=== PATIENT | female | born 1950 | race Caucasian/White ===

== ENCOUNTER → 2021-05-31 | Outpatient (CLI) | payer MEDICARE ==
[~2021-05-31] MED LIST: BAMLANIVIMAB (EUA) 700 MG, ETESEVIMAB (EUA) 1,400 MG in SODIUM CHLORIDE 0.9% 100 ML IVPB ONE; SODIUM CHLORIDE 0.9% 50 ML IVPB ONE; SODIUM CHLORIDE 0.9% 500 ML 500 ML in EMPTY BAG 1 BAG IV PRN
[2021-05-31 08:48] VITALS: RESP 18; TEMP 96.6
[2021-05-31 09:26] VITALS: BP 115/75; PULSE 63
== END ==
LOC: PROCWHC3 07:53
PROVIDERS: ATTEND Family Medicine
DX: U07.1 COVID-19 (principal); E66.9 Obesity, unspecified; E11.22 Type 2 diabetes mellitus with diabetic chronic kidney disease; N18.9 Chronic kidney disease, unspecified; Z88.1 Allergy status to other antibiotic agents; Z68.41 Body mass index [BMI] 40.0-44.9, adult
CPT/HCPCS: 96413; J3490; M0245

== ENCOUNTER → 2021-12-25 | Outpatient (CLI) | payer MEDICARE ==
--- NOTE | 2021-12-25 13:12 | MR ---
EXAMINATION TYPE: MR lumbar spine wo con DATE OF EXAM: 12/25/2021 COMPARISON: HISTORY: Lower back pain, right side, for 6 months. CONTRAST: 0 mL intravenous . TECHNIQUE: Multiplanar, multisequence images of the lumbar spine were acquired. FINDINGS: Cord terminates at the L1 level. Degenerative disc changes and disc desiccation are presen t throughout the lumbar spine. There is greater loss of disc height at L4-5 and L5-S1. L5-S1: No significant disc bulge or disc herniation. No spinal canal stenosis. No foraminal stenosi s. . L4-L5: No significant disc bulge or disc herniation. No spinal canal stenosis. No foraminal stenosi s. . L3-L4: No significant disc bulge or disc herniation. No spinal canal stenosis. No foraminal stenosi s. Facet hypertrophy is present on the left at this level without significant posterior lateral thec al sac impression.. L2-L3: Minimal disc bulge may be present with anterior thecal sac contact. No AP spinal canal stenosi s or neural foraminal stenosis is present. L1-L2: Minimal disc bulge is present with anterior thecal sac contact. No spinal canal stenosis. T12-L1: Mild disc bulge may be present with anterior thecal sac contact. No spinal canal stenosis. No foraminal stenosis. IMPRESSION: 1. Degenerative disc changes throughout the lumbar spine. Some minimal disc bulging may be present T1 2-L1, L1-2, L2-3. No cord contact or spinal canal stenosis is present. 2. Some facet hypertrophy present on the left at L3-4.
== END | disposition home or self-care (01) ==
LOC: RADMRIMAIN 10:45
PROVIDERS: ATTEND Orthopaedic Surgery
DX: M47.26 Other spondylosis with radiculopathy, lumbar region (principal); M51.16 Intervertebral disc disorders with radiculopathy, lumbar region
CPT/HCPCS: 72148

== ENCOUNTER → 2022-02-01 | Outpatient (CLI) | payer MEDICARE ==
[2022-02-01 12:59] VITALS: BP 112/56; PULSE 73; RESP 18; TEMP 98.4
--- NOTE | 2022-02-01 13:13 | P.PAINCN ---
History of Present Illness - Reason for Consult Consult date: 02/01/22 - History of Present Illness This is 71 years old female with a chronic history of severe low back pain, the pain started in June 2021, he denies any initiating event and she reported that the pain is constant localized in the low back area with radiation to the buttock bilaterally, she denies any motor or sensory deficits denies any fever or night sweats she denies any change in the bowel movement or urination, she tried physical therapy with more minimal benefit she tried heat with minimal benefit, patient use cane and walker to help her with the movement, she tried massage therapy and physical therapy and she continued to have severe back pain she continue to use [place]rick 7.5/325 and Flexeril when necessary and she had minimal benefit from it Past Medical History Past Medical History: Asthma, Cancer, Diabetes Mellitus, Hyperlipidemia, Hypertension, Osteoarthritis (OA), Pneumonia Additional Past Medical History / Comment(s): CHRONIC BACK PAIN, SEASONAL ALLERGIES History of Any Multi-Drug Resistant Organisms: None Reported Past Surgical History: Bariatric Surgery, Section, Heart Ca theterization, Joint Replacement, Tonsillectomy, Tubal Ligation Additional Past Surgical History / Comment(s): LAP BAND, RT KNEE REPLACEMENT, RT LEG VEIN STRIPPING, SKIN CANCER Past Anesthesia/Blood Transfusion Reactions: Motion Sickness Smoking Status: Never smoker - Past Family History Sister(s) Family Medical History: Cancer Additional Family Medical History / Comment(s): (2) SISTERS HAD CANCER Medications and Allergies Home Medications Medication Instructions Recorded Confirmed Type ALPRAZolam [Xanax] 0.25 mg PO TID PRN 10/23/13 02/01/22 History Albuterol Inhaler(Dose Unknown) 2 puff INHALATION PRN 10/23/13 10/24/13 History Aspirin 81 mg PO DAILY 10/23/13 02/01/22 History Cetirizine HCl 10 mg PO DAILY 10/23/13 02/01/22 History Flovent(Dose Unknown) 1 puff INHALATION DAILY PRN 10/23/13 02/01/22 History Hydrocodone/Acetaminophen 1 each PO Q8HR PRN 10/23/13 02/01/22 History [Hydrocodone/Acetaminophen 7.5-300] Meclizine [Antivert] 25 mg PO TID PRN 10/23/13 02/01/22 History Metoprolol Tartrate [Lopressor] 50 mg PO BID 10/23/13 02/01/22 History Multivitamins, Thera [Multivitamin] 1 tab PO DAILY 10/23/13 02/01/22 History Pravastatin Sodium [Pravachol] 80 mg PO HS 10/23/13 02/01/22 History lisinopriL [Zestril] 20 mg PO DAILY 10/23/13 02/01/22 History metFORMIN HCL [Glucophage] 500 mg PO BID 10/23/13 02/01/22 History Hydrocodone/Acetaminophen [[place] 1 - 2 each PO Q4HR PRN #30 tab 10/24/13 02/01/22 Rx 5-325] Cyclobenzaprine [Flexeril] 5 mg PO HS 02/01/22 02/01/22 History Allergies Allergy/AdvReac Type Severity Reaction Status Date / Time azithromycin Allergy Unknown Verified 02/01/22 12:59 erythromycin base Allergy Unknown Verified 02/01/22 12:59 Physical Exam Vitals: Vital Signs Temp Pulse Resp BP Pulse Ox 02/01/22 12:54 98.4 F 73 18 112/56 96 Intake and Output 01/31/22 02/01/22 02/01/22 22:59 06:59 14:59 Other: Weight 127.006 kg Physical Examinations : -Constitutiona : Cooperative , not in acute distress . -HEENT : nech : supple , no Lymphadenopathy , normal thyroid size . : eyes : no ptosis , no icterus, no photophobia . - neurologic : Cranial nerve II to XII intact , no focal neurological deffecit . -psychatric : alert , oriented X 3 , appropriate affect , intact judgment and insight . -Lymphatic : no Lymphadenopathy . - musculoskeltal : Lumber spine moter stegnth lower extremities ,thigh and legs 5/5 Right side , 5/5 Left side deep tendon reflexes : normal Knee Jerk , normal ankle Jerk lumber facet Loading Test =positive Right , positive Left Range of motion of the lumbar spine Flexion 30 degrees, extension 10 degrees strait leg raising test = positive at 30 degree right side, and is negative on the left side Fabere test= positive Right , and negative LT . Sever tenderness over the Sacroiliac joint on the Right , and Left sides Gaenslen test= positive right ,and positive left . Seated flexion test= positive right ,and positive Left . Distraction test= positive bilaterally Sacroiliac compression test= positive bilaterally Results Comments: MRI of the lumbar spine L3 4 lumbar facet arthropathy and lumbar degenerative disc disease Assessment and Plan Plan: Assessment and plan=1-bilateral sacroiliitis. 2-lumbar spondylosis with lumbar facet arthropathy. 3-lumbar degenerative disc disease. she could benefit from bilateral sacroiliac joint steroid injection Time with Patient: Greater than 30 PQRS Measure Charge Sheet Mode of Arrival: Wheelchair - Pain Location Lower Back Non-Pharmacological Interventions: Heat, Home Exercise, Inactivity, Physical Therapy, Position/Reposition, Sitting, Stretching Pharmacological Interventions: PRN Medication PQRS Narrative: Smoking Status Never smoker Blood Pressure 112/56 Pain Intensity [Lower Back] 5 Scale Used Numeric (1 - 10) Hx Alcohol Use (MH) No Home Medications: Ambulatory Orders ALPRAZolam [Xanax] 0.25 mg PO TID PRN 10/23/13 Albuterol Inhaler(Dose Unknown) 2 puff INHALATION PRN 10/23/13 Aspirin 81 mg PO DAILY 10/23/13 Cetirizine HCl 10 mg PO DAILY 10/23/13 Flovent(Dose Unknown) 1 puff INHALATION DAILY PRN 10/23/13 Hydrocodone/Acetaminophen [Hydrocodone/Acetaminophen 7.5-300] 1 each PO Q8HR PRN 10/23/13 Meclizine [Antivert] 25 mg PO TID PRN 10/23/13 Metoprolol Tartrate [Lopressor] 50 mg PO BID 10/23/13 Multivitamins, Thera [Multivitamin] 1 tab PO DAILY 10/23/13 Pravastatin Sodium [Pravachol] 80 mg PO HS 10/23/13 lisinopriL [Zestril] 20 mg PO DAILY 10/23/13 metFORMIN HCL [Glucophage] 500 mg PO BID 10/23/13 Hydrocodone/Acetaminophen [[place] 5-325] 1 - 2 each PO Q4HR PRN #30 tab 10/24/13 Cyclobenzaprine [Flexeril] 5 mg PO HS 02/01/22
== END ==
LOC: PNWHC3 12:22
PROVIDERS: ATTEND Specialist
DX: M51.16 Intervertebral disc disorders with radiculopathy, lumbar region (principal); M47.26 Other spondylosis with radiculopathy, lumbar region; M46.1 Sacroiliitis, not elsewhere classified; J45.909 Unspecified asthma, uncomplicated; E11.9 Type 2 diabetes mellitus without complications; E78.5 Hyperlipidemia, unspecified; I10 Essential (primary) hypertension; Z79.899 Other long term (current) drug therapy; Z88.1 Allergy status to other antibiotic agents
CPT/HCPCS: 99211

== ENCOUNTER 2022-03-14 09:46 | Day surgery (SDC) | payer MEDICARE ==
[2022-03-13 11:14] VITALS: BMI 43.8
[2022-03-14 10:09] VITALS: TEMP 97.4
[2022-03-14 10:12] LABS: Glucose,Whole Blood 179 mg/dL (70-110)
[2022-03-14] MEDS: LACTATED RINGERS 1,000 ML IV SCH ×2 (10:12→10:15)
[2022-03-14] MEDS ORDERED: ROPIVACAINE 5 MG/ML 20 ML AMPULE ONE (10:17)
[2022-03-14] MEDS ORDERED: MIDAZOLAM 2 MG/2 ML VIAL ONE (10:17)
[2022-03-14] MEDS ORDERED: fentaNYL (PF) 50 MCG/ML 2 ML AMP ONE (10:17)
[2022-03-14] MEDS ORDERED: TRIAMCINOLONE ACETONIDE 40 MG/ML 1 ML VIAL ONE (10:17)
--- NOTE | 2022-03-14 10:32 | P.PCN ---
Date of Procedure: 03/14/22 Surgeon: Ruby Aguero Pathology: none sent Condition: stable Disposition: PACU Description of Procedure: Preoperative diagnoses= B/L sacroiliac joint dysfunction and sacroiliitis Postoperative diagnoses= same as preoperative diagnosis. Procedure=B/L sacroiliac joint steroid injection under fluoroscopic guidance. Anesthesia= local anesthesia with lidocaine 1% and IV moderate conscious sedation with fentanyl and Versed Estimated blood loss=minimal. Procedure indication= the patient had a history of severe chronic low back pain, diagnosed with sacroiliitis and lumbar sacral facet arthropathy unresponsive to conservative treatment. Procedure description= the patient was seen and identified in the preoperative holding area, risks and benefits and alternative of the procedure and possible complications discussed with the patient, patient signed the consent. an IV was started, and vital signs were monitored and were stable throughout the procedure, patient was placed in the prone position or table and the lumbosacral area was prepped and draped with a sterile fashion, vital signs were closely monitored during the procedure.The Lt sacroiliac joint was identified on the AP view of fluoroscopy then the C-arm was tilted to the contralateral oblique position to superimpose the anterior and posterior joint lines on each other and to have a unified joint line with the target point at the inferior one third of this line. I used 22-gauge 3-1/2 inch Quincke spinal needle for this procedure and after getting into the sacroiliac joint I injected 20 mg of Kenalog +2 MLS of Ropivacaine 0.5%. The opposite side was done in the same manner. Patient tolerated the procedure well without any complication, The patient returned to supine position after the back was cleaned and a Band- Aid applied, the patient transported to recovery room in stable condition and he was monitored for 30 minutes before she was discharged home in stable condition . patient will follow up with the pain clinic in a few weeks. A copy of the needle placement was saved to the C-arm machine. Sedation time:[id number]
[2022-03-14] MEDS ORDERED: IV FLUID CONTINUATION 850 ML IV ONE (10:37)
--- NOTE | 2022-03-14 10:41 | FL ---
EXAMINATION TYPE: FL guided pain mgmt statistic DATE OF EXAM: 03/14/2022 HISTORY: Fluoroscopy time 23 seconds of fluoroscopy provided. IMPRESSION: 1. Fluoroscopy time.
[2022-03-14 10:43] VITALS: RESP 16
[2022-03-14 10:53] VITALS: BP 134/79; PULSE 70
== END 2022-03-14 11:08 | disposition home or self-care (01) ==
LOC: ORPAIN 09:46
PROVIDERS: ATTEND Anesthesiology
DX: M46.1 Sacroiliitis, not elsewhere classified (principal)
CPT/HCPCS: J2250; J3301; J3010; J2795; G0260

== ENCOUNTER → 2022-06-05 | Outpatient (CLI) | payer MEDICARE ==
[2022-06-05 14:37] VITALS: BP 130/86; PULSE 84; RESP 18; TEMP 98.5
--- NOTE | 2022-06-05 14:48 | P.PAINPG ---
Objective - Vital Signs Vital signs: Intake & Output 06/04/22 06/05/22 06/05/22 18:59 06:59 18:59 Weight 124.738 kg PQRS Measure Charge Sheet Comment: A 72 yr old female with a history of severe and chronic low back pain secondary to lumbar DDD and spondylosis with facet arthropathy without myelopathy presents today for medication refills. She experienced 70% pain relief x 6 wks s/p BL SI injection. Pain level is provoked at 4 /10 in intensity, constant, localized in the lumbar spine, sharp in character w shooting towards . Pain is provoked by standing up from a supine position. Pain is alleviated with PT x 4-6 wks in November 2021, massage therapy integrated w PT, heat, meds ([place], muscle relaxer, Lidoderm), sitting and rest. Interventional pain procedures completed include BL SI injection Patient is currently on [place], muscle relaxer, Lidoderm Patient denies any side effects of the medication(s), denies excessive drowsiness or sleepiness, denies suicidal ideation and reports that the current pain medication is helping to control the pain and improve activities of daily living. Patient denies any motor or sensory deficits. Patient denies any fever or night sweats, denies any change in the bowel movements or urination. Physical Examination: -Constitutional: Cooperative. Not in acute distress . - Neurologic: Cranial nerve II to XII intact. No focal neurological deficits. - Psychatric: Alert & oriented x 3. Matching mood & appropriate affect. Judgment and insight intact. - Musculoskeletal: Cervical spine: Muscle bulk/ tone/ strength in the bilateral upper extremities normal Vertebral body tenderness to palpation over Spurling test positive Distraction test positive Facet loading test positive Thoracic spine Muscle bulk / tone/ strength in the bilateral paraspinal muscles normal Vertebral body tender to palpation over Facet loading test positive Lumbar spine: Motor bulk/ tone/ strength lower extremities , thigh and legs : 5/5 Deep tendon reflexes : Normal Knee Jerk. Normal Ankle Jerk . Vertebral body tenderness to palpation over Lumbar Facet Loading Test positive Straight Leg Raise: positive at 30 degrees right side/ left side Gaenslen's Test positive Sacral spine : Severe tenderness over the Sacroiliac joint: right side / left side Range of motion: Flexion of the lumbar spine <60 degrees Range of motion: Extension of the lumbar spine <20 degrees Gaenslen's Test positive BL Staci test: positive right side / left side Thigh Thrust Test R>L BL Sacral Thrust Test Assessment and plan: Chronic low back pain secondary to lumbar degenerative disc disease, spondylosis with facet arthropathy without myelopathy Recommendation of BL SI injection. May need a series, up to every 3 mo, for optimal pain relief. Risks, benefits of procedure discussed and pt sal[place]riga understanding. Denies anticoagulant use or medical history of diabetes. All patient questions answered MAPS reviewed and it was appropriate. Prescription refill for Lidoderm 5% patches #30 w 1 RF I have spent less than 30 minutes on patient care today. Dr Damon was available by phone for the evaluation of this patient. The time was used to review the medical records including relevant urine studies and Prescription history (MAPs), review of the available imaging, evaluation and examination of the patient, coordination of care with the medical staff and if applicable referring physicians, as well as creation of the medical record - Pain Location Bilateral Lower Back Non-Pharmacological Interventions: Heat, Inactivity, Massage, Physical Therapy, Sitting Pharmacological Interventions: PRN Medication, Topical Medication PQRS Narrative: Smoking Status Never smoker Hx Alcohol Use (MH) No Home Medications: Ambulatory Orders ALPRAZolam [Xanax] 0.25 mg PO TID PRN 10/23/13 Albuterol Inhaler(Dose Unknown) 2 puff INHALATION DIRECTED PRN 10/23/13 Aspirin 81 mg PO DAILY 10/23/13 Cetirizine HCl 10 mg PO DAILY 10/23/13 Meclizine [Antivert] 25 mg PO TID PRN 10/23/13 Metoprolol Tartrate [Lopressor] 50 mg PO BID 10/23/13 Multivitamins, Thera [Multivitamin] 1 tab PO DAILY 10/23/13 Pravastatin Sodium [Pravachol] 80 mg PO HS 10/23/13 metFORMIN HCL [Glucophage] 500 mg PO TID 10/23/13 Hydrocodone/Acetaminophen [[place] 5-325] 1 - 2 each PO Q4HR PRN #30 tab 10/24/13 Cyclobenzaprine [Flexeril] 5 mg PO HS 02/01/22 Empagliflozin [Jardiance] 10 mg PO DAILY 03/14/22 Lidocaine 5% Patch [Lidoderm 5% Patch] 1 each TP Q24H 30 Days #30 patch 06/05/22 Controlled Substance Measures - Controlled Substance Measures Is patient prescribed a controlled substance at discharge?: No
== END ==
LOC: PNWHC3 14:06
PROVIDERS: ATTEND Specialist
DX: M47.816 Spondylosis without myelopathy or radiculopathy, lumbar region (principal); M51.36 Other intervertebral disc degeneration, lumbar region; Z88.1 Allergy status to other antibiotic agents
CPT/HCPCS: 99211

== ENCOUNTER 2022-06-22 08:11 | Day surgery (SDC) | payer MEDICARE ==
[2022-06-20 08:58] VITALS: BMI 43.8
[~2022-06-22 08:11] MED LIST changes: -BAMLANIVIMAB (EUA) 700 MG, ETESEVIMAB (EUA) 1,400 MG in SODIUM CHLORIDE 0.9% 100 ML IVPB ONE; +LACTATED RINGERS 1,000 ML IV SCH; +LIDOCAINE 1% (10MG/ML) FOR IV START INTRADERMA PRN; -SODIUM CHLORIDE 0.9% 50 ML IVPB ONE; -SODIUM CHLORIDE 0.9% 500 ML 500 ML in EMPTY BAG 1 BAG IV PRN
[2022-06-22 08:32] VITALS: TEMP 96.6
[2022-06-22 08:51] LABS: Glucose,Whole Blood 177 mg/dL (70-110)
[2022-06-22] MEDS ORDERED: ONDANSETRON 4 MG/2 ML VIAL ONE ×2 (09:04→09:07)
[2022-06-22] MEDS ORDERED: methylPREDNISolone ACETATE 40 MG/ML 1 ML VIAL ONE (09:07)
[2022-06-22] MEDS ORDERED: ROPIVACAINE 5 MG/ML 20 ML AMPULE ONE (09:07)
[2022-06-22] MEDS ORDERED: MIDAZOLAM 2 MG/2 ML VIAL ONE (09:07)
[2022-06-22] MEDS ORDERED: fentaNYL (PF) 50 MCG/ML 2 ML AMP ONE (09:07)
--- NOTE | 2022-06-22 09:19 | P.PCN ---
Date of Procedure: 06/22/22 Procedure(s) Performed: Procedure= bilateral sacroiliac joints steroid injection under fluoroscopy guidance (fluoroscopy image stored on file in the radiology Department ) Preoperative diagnosis= 1-sacroiliitis 2-lumbar degenerative disc disease 3- lumbar facet arthropathy Postoperative diagnosis=Same as preop Diagnosis . Complication = none Condition= stable Anesthesia= moderate sedation with intravenous Versed 2 mg , and fentanyl 50 micrograms . Sedation start time: 0 9:10 Sedation end time : 09:17 Indication for the procedure= patient complaining of low back pain , examination was positive for severe tenderness over the sacroiliac joints bilaterally and patient diagnosed with sacroiliitis, for this reason she was good candidate for sacroiliac joint steroid injection. Description of the procedure= procedure risk and benefits discussed with the patient, including but not limited, risk of infection and bleeding, and ALLERGIC reaction to the medication and not complete pain relief and patient agreed with the preceding patient taken to the operating room, placed in prone position or standard monitors applied to the patient then after induction of anesthesia back prepped with chlorhexidine 3 times , Then under strict sterile technique, first I did the right sacroiliac joint the which was identified under fluoroscopy guidance been local infiltration of the skin and subcu interstitial with lidocaine 1% then 22-gauge Quincke Needle adva nced slowly under fluoroscopy and placed in the right sacroiliac joint needle placement confirmed with AP and oblique and lateral view and after appropriate needle placement confirmed and after negative aspiration, or heme , then Ropivacaine 0.5% 4 mL, and 20 mg of Depo-Medrol mixed together and injected in the right sacroiliac joint after negative aspiration patient tolerated the procedure well without any complication. Then the left sacroiliac joint steroid injection done under strict sterile technique local infiltration of the skin and subcu interstitial at the location of the left sacroiliac joint then a 22-gauge Quincke Needle advanced slowly under fluoroscopy time placed in the left sacroiliac joint, needle placement confirmed with AP and oblique and lateral view then after appropriate needle placement confirmed and after negative aspiration 0.5% Ropivacaine 4 mL and 20 mg of Depo-Medrol injected in the left sacroiliac joint after negative aspiration patient tolerated the procedure well that any complications and she will follow up in clinic 3 weeks
[2022-06-22] MEDS ORDERED: IV FLUID CONTINUATION 800 ML IV ONE (09:21)
[2022-06-22 09:34] VITALS: RESP 20
[2022-06-22 09:41] VITALS: BP 116/76; PULSE 64
--- NOTE | 2022-06-22 11:06 | FL ---
EXAMINATION TYPE: FL guided pain mgmt statistic DATE OF EXAM: 06/22/2022 CLINICAL HISTORY: SI joint injection TECHNIQUE: Fluoroscopy. COMPARISON: None. FINDINGS: Fluoroscopic guidance was provided during procedure performed by the referring physician. A total of 7 seconds of fluoroscopic time was utilized during the procedure and 2 spot images was acq uired. Please see separate report for procedural details. IMPRESSION: As Above.
== END 2022-06-22 09:51 | disposition home or self-care (01) ==
LOC: ORPAIN 08:11
PROVIDERS: ATTEND Specialist
DX: M46.1 Sacroiliitis, not elsewhere classified (principal); M51.36 Other intervertebral disc degeneration, lumbar region; M47.816 Spondylosis without myelopathy or radiculopathy, lumbar region; Z88.1 Allergy status to other antibiotic agents; Z79.83 Long term (current) use of bisphosphonates
CPT/HCPCS: J2250; J1030; J2405; J3010; J2795; G0260

== ENCOUNTER → 2022-08-14 | Outpatient (CLI) | payer MEDICARE ==
[2022-08-14 12:48] VITALS: BP 130/83; PULSE 57; RESP 18; TEMP 97.7
--- NOTE | 2022-08-14 14:45 | P.PAINPG ---
PQRS Measure Charge Sheet Comment: A 72 yr old female with a history of severe and chronic LBP secondary to lumbar DDD and spondylosis with facet arthropathy without myelopathy presents today for evaluation s/p BL SI injections and medication refill. Pt states she experienced 90 % pain relief x 6 wks s/p procedure. Pain level is provoked at 6 /10 in intensity, constant, localized in the lower lumbar spine, pinching in character w/p shooting pain. Pain is provoked by . Pain is alleviated with PT w massage x 2 mo in Nov 2021, medications, topical, home stretching regimen, repositioning and rest. Interventional pain procedures completed include BL SI Patient is currently on [place], Tyl, Lidoderm Patient denies any side effects of the medication(s), denies excessive drowsiness or sleepiness, denies suicidal ideation and reports that the current pain medication is helping to control the pain and improve activities of daily living. Patient denies any motor or sensory deficits. Patient denies any fever or night sweats, denies any change in the bowel movements or urination. Physical Examination: -Constitutional: Cooperative. Not in acute distress . - Neurologic: Cranial nerve II to XII intact. No focal neurological deficits. - Psychatric: Alert & oriented x 3. Matching mood & appropriate affect. Judgment and insight intact. - Musculoskeletal: Cervical spine: Muscle bulk/ tone/ strength in the bilateral upper extremities normal Vertebral body tenderness to palpation over Spurling test positive Distraction test positive Facet loading test positive TTP Thoracic spine Muscle bulk / tone/ strength in the bilateral paraspinal muscles normal Vertebral body tender to palpation over Facet loading test positive TTP Lumbar spine: Motor bulk/ tone/ strength lower extremities , thigh and legs : 5/5 Deep tendon reflexes : Normal Knee Jerk. Normal Ankle Jerk . Vertebral body tenderness to palpation over Lumbar Facet Loading Test positive Straight Leg Raise: positive at 30 degrees right side/ left side Gaenslen's Test positive Sacral spine : Severe tenderness over the Sacroiliac joint: right side / left side Range of motion: Flexion of the lumbar spine <60 degrees Range of motion: Extension of the lumbar spine <20 degrees Gaenslen's Test positive right side / left side Staci test: positive right side / left side Thigh Thrust Test positive right side / left side Sacral Thrust Test positive right side / left side Assessment and plan: Chronic LBP secondary to lumbar DDD, spondylosis with facet arthropathy without myelopathy Recommendation of BL SI injection. May need a series of injections for optimal pain relief. Risks, benefits of procedure discussed and pt verbalized understanding. Admits to anticoagulant use or medical history of diabetes. Protocol for discontinuation/ continuation of medications gerardo procedure discussed. All questions answered. Chronic and current use of high-risk medication (Opioids). The patient was counseled about risk of opioid use, psychological risk associated with opioids and was orally counseled to not overuse , divert or sell medications. Pt is to store medication in a safe location. The patient is counseled against driving while using narcotic medications and also not to use alcohol or any illicit recreational drugs. Patient verbalized understanding that the lack of compliance will result in failure to renew narcotic prescription(s) as well as possible discharge from the clinic Diagnoses, prognosis and treatment options including but not limited to physical therapy, surgical interventions, interventional therapies and medication management including narcotics and adjuvant medication were discussed. All patient questions answered MAPS reviewed and it was appropriate. Prescription refill for Lidoderm patches #30 w 1 RF I have spent less than 30 minutes on patient care today. Dr Damon was available by phone for the evaluation of this patient. The time was used to review the medical records including relevant urine studies and Prescription history (MAPs), review of the available imaging, evaluation and examination of the patient, coordination of care with the medical staff and if applicable referring physicians, as well as creation of the medical record PQRS Narrative: Smoking Status Never smoker Hx Alcohol Use (MH) No Home Medications: Ambulatory Orders ALPRAZolam [Xanax] 0.25 mg PO TID PRN 10/23/13 Albuterol Inhaler(Dose Unknown) 2 puff INHALATION DIRECTED PRN 10/23/13 Aspirin 81 mg PO DAILY 10/23/13 Cetirizine HCl 10 mg PO DAILY 10/23/13 Meclizine [Antivert] 25 mg PO TID PRN 10/23/13 Metoprolol Tartrate [Lopressor] 50 mg PO BID 10/23/13 Multivitamins, Thera [Multivitamin] 1 tab PO DAILY 10/23/13 Pravastatin Sodium [Pravachol] 80 mg PO HS 10/23/13 metFORMIN HCL [Glucophage] 500 mg PO TID 10/23/13 Cyclobenzaprine [Flexeril] 5 mg PO HS 02/01/22 Empagliflozin [Jardiance] 10 mg PO DAILY 03/14/22 Lidocaine 5% Patch [Lidoderm 5% Patch] 1 each TP Q24H 30 Days #30 patch 06/05/22 HYDROcodone/APAP 5-325MG [[place] 5-325] 1 tab PO Q4HR PRN 3 Days #18 tab 06/14/22 Fluticasone Propion/Salmeterol [Fluticasone-Salmeterol 232-14] 1 dose INHALATION BID 06/20/22 Controlled Substance Measures - Controlled Substance Measures Is patient prescribed a controlled substance at discharge?: No
== END ==
LOC: PNWHC3 11:51
PROVIDERS: ATTEND Specialist
DX: M51.36 Other intervertebral disc degeneration, lumbar region (principal); M47.816 Spondylosis without myelopathy or radiculopathy, lumbar region; G89.29 Other chronic pain; Z79.891 Long term (current) use of opiate analgesic; Z79.82 Long term (current) use of aspirin; Z88.1 Allergy status to other antibiotic agents
CPT/HCPCS: 99211

== ENCOUNTER → 2023-01-22 | Outpatient (CLI) | payer MEDICARE ==
[2023-01-22 13:53] VITALS: BP 145/89; PULSE 71; RESP 16; TEMP 98.4
--- NOTE | 2023-01-22 14:20 | P.PAINPG ---
PQRS Measure Charge Sheet Comment: A 72 yr old female with a history of severe and chronic LBP secondary to lumbar DDD and spondylosis with facet arthropathy without myelopathy, BL Sacroiliitis presents today for evaluation s/p BL SI injections and medication refill. Pain level is provoked at 9 /10 in intensity, constant, localized in the lower lumbar spine, stabbing in character w/p shooting pain. Pain has unknown provocative factors. Pain is alleviated with injections, PT w massage x 2 mo in Nov 2021, medications, topical, home stretching regimen, repositioning and rest. Oswestry axial pain score of 28. Interventional pain procedures completed include BL SI injection Patient is currently on [place], Flexeril, Tyl, Lidoderm Patient denies any side effects of the medication(s), denies excessive drowsiness or sleepiness, denies suicidal ideation and reports that the current pain medication is helping to control the pain and improve activities of daily living. Patient denies any motor or sensory deficits. Patient denies any fever or night sweats, denies any change in the bowel movements or urination. Physical Examination: -Constitutional: Cooperative. Not in acute distress . - Neurologic: Cranial nerve II to XII intact. No focal neurological deficits. - Psychatric: Alert & oriented x 3. Matching mood & appropriate affect. Judgment and insight intact. - Musculoskeletal: Cervical spine: Muscle bulk/ tone/ strength in the bilateral upper extremities normal Vertebral body tenderness to palpation over Spurling test positive Distraction test positive Facet loading test positive TTP Thoracic spine Muscle bulk / tone/ strength in the bilateral paraspinal muscles normal Vertebral body tender to palpation over Facet loading test positive TTP Lumbar spine: Motor bulk/ tone/ strength lower extremities , thigh and legs : 5/5 Deep tendon reflexes : Normal Knee Jerk. Normal Ankle Jerk . Vertebral body tenderness to palpation over Lumbar Facet Loading Test positive Straight Leg Raise: positive at 30 degrees right side/ left side Gaenslen's Test positive Sacral spine : Severe tenderness over the Sacroiliac joint: right side / left side Range of motion: Flexion of the lumbar spine <60 degrees Range of motion: Extension of the lumbar spine <20 degrees Gaenslen's Test positive right side / left side Staci test: positive right side / left side Thigh Thrust Test positive right side / left side Sacral Thrust Test positive right side / left side Assessment and plan: Chronic LBP secondary to lumbar DDD, spondylosis with facet arthropathy without myelopathy, BL Sacroiliitis Recommendation of BL SI injection #2. May need a series of injections for optimal pain relief. Risks, benefits of procedure discussed and pt verbalized understanding. Protocol for discontinuation/ continuation of medications surrounding procedure discussed. All questions answered. Chronic and current use of high-risk medication (Opioids). The patient was counseled about risk of opioid use, psychological risk associated with opioids and was orally counseled to not overuse , divert or sell medications. Pt is to store medication in a safe location. The patient is counseled against driving while using narcotic medications and also not to use alcohol or any illicit recreational drugs. Patient verbalized understanding that the lack of compliance will result in failure to renew narcotic prescription(s) as well as possible discharge from the clinic Diagnoses, prognosis and treatment options including but not limited to physical therapy, surgical interventions, interventional therapies and medication management including narcotics and adjuvant medication were discussed. All patient questions answered MAPS reviewed and it was appropriate. Prescription refill for Lidoderm patches #30 w 1 RF. Parrott 5/325mg #21 NR. Use, side effects, adverse reactions and safe storage discussed. Pt acknowledged understanding. I have spent less than 30 minutes on patient care today. Dr Damon was available by phone for the evaluation of this patient. The time was used to review the medical records including relevant urine studies and Prescription history (MAPs), review of the available imaging, evaluation and examination of the patient, coordination of care with the medical staff and if applicable referring physicians, as well as creation of the medical record PQRS Narrative: Smoking Status Never smoker Hx Alcohol Use (MH) No Home Medications: Ambulatory Orders ALPRAZolam [Xanax] 0.25 mg PO TID PRN 10/23/13 Albuterol Inhaler(Dose Unknown) 2 puff INHALATION DIRECTED PRN 10/23/13 Aspirin 81 mg PO DAILY 10/23/13 Cetirizine HCl 10 mg PO DAILY 10/23/13 Meclizine [Antivert] 25 mg PO TID PRN 10/23/13 Metoprolol Tartrate [Lopressor] 50 mg PO BID 10/23/13 Multivitamins, Thera [Multivitamin] 1 tab PO DAILY 10/23/13 Pravastatin Sodium [Pravachol] 80 mg PO HS 05/29/14 metFORMIN HCL [Glucophage] 500 mg PO TID 10/23/13 Cyclobenzaprine [Flexeril] 5 mg PO HS 02/01/22 Empagliflozin [Jardiance] 10 mg PO DAILY 03/14/22 HYDROcodone/APAP 5-325MG [[place] 5-325] 1 tab PO Q4HR PRN 3 Days #18 tab 06/14/22 Fluticasone Propion/Salmeterol [Fluticasone-Salmeterol 232-14] 1 dose INHALATION BID 06/20/22 Lidocaine 5% Patch [Lidoderm 5% Patch] 1 each TP Q24H 30 Days #30 patch 08/14/22 Controlled Substance Measures - Controlled Substance Measures Is patient prescribed a controlled substance at discharge?: Yes When asked, does pt state using other controlled substances?: Yes If prescribed controlled substance>3 days was MAPS reviewed?: Prescribed <3 Days If Rx opioid, was Start Talking consent form obtained?: Yes If opioid is for acute pain is fill amount 7 days or less?: Yes Was information provided regarding opioid addiction?: Yes
== END ==
LOC: PNWHC3 13:12
PROVIDERS: ATTEND Specialist
DX: M51.36 Other intervertebral disc degeneration, lumbar region (principal); M47.816 Spondylosis without myelopathy or radiculopathy, lumbar region; M46.1 Sacroiliitis, not elsewhere classified; G89.29 Other chronic pain; Z79.891 Long term (current) use of opiate analgesic; Z79.82 Long term (current) use of aspirin; Z88.1 Allergy status to other antibiotic agents; Z88.8 Allergy status to other drugs, medicaments and biological substances
CPT/HCPCS: 99211

== ENCOUNTER → 2023-03-19 | Outpatient (CLI) | payer MEDICARE ==
[2023-03-19 14:22] VITALS: BP 155/86; PULSE 70; RESP 16; TEMP 98.1
--- NOTE | 2023-03-19 14:24 | P.PAINPG ---
PQRS Measure Charge Sheet Comment: A 72 yr old female with a history of severe and chronic LBP secondary to lumbar DDD and spondylosis with facet arthropathy without myelopathy, BL Sacroiliitis presents today for evaluation s/p BL SI injections. Pt states she received 80% pain relief for the last several weeks since the procedure. Pain level is provoked at 9 /10 in intensity, constant, localized in L hip without shooting pain. Pain has unknown provocative factors. Pain is alleviated with injections, PT w massage x 2 mo in Nov 2021, medications, topical, home stretching regimen, repositioning and rest. Oswestry axial pain score of 29. Interventional pain procedures completed include BL SI injection x2 Patient is currently on [place], Flexeril, Tyl, Lidoderm Patient denies any side effects of the medication(s), denies excessive drowsiness or sleepiness, denies suicidal ideation and reports that the current pain medication is helping to control the pain and improve activities of daily living. Patient denies any motor or sensory deficits. Patient denies any fever or night sweats, denies any change in the bowel movements or urination. Physical Examination: -Constitutional: Cooperative. Not in acute distress . - Neurologic: Cranial nerve II to XII intact. No focal neurological deficits. - Psychatric: Alert & oriented x 3. Matching mood & appropriate affect. Judgment and insight intact. - Musculoskeletal: Cervical spine: Muscle bulk/ tone/ strength in the bilateral upper extremities normal Vertebral body tenderness to palpation over Spurling test positive Distraction test positive Facet loading test positive TTP Thoracic spine Muscle bulk / tone/ strength in the bilateral paraspinal muscles normal Vertebral body tender to palpation over Facet loading test positive TTP Lumbar spine: +L hip diffuse TTP Motor bulk/ tone/ strength lower extremities , thigh and legs : 5/5 Deep tendon reflexes : Normal Knee Jerk. Normal Ankle Jerk . Vertebral body tenderness to palpation over Lumbar Facet Loading Test positive Straight Leg Raise: positive at 30 degrees right side/ left side Gaenslen's Test positive Sacral spine : Severe tenderness over the Sacroiliac joint: right side / left side Range of motion: Flexion of the lumbar spine <60 degrees Range of motion: Extension of the lumbar spine <20 degrees Gaenslen's Test positive right side / left side Staci test: positive right side / left side Thigh Thrust Test positive right side / left side Sacral Thrust Test positive right side / left side Assessment and plan: Chronic LBP secondary to lumbar DDD, spondylosis with facet arthropathy without myelopathy, BL Sacroiliitis Recommendation of x ray of L hip M25.559 May need additional testing if indicated. All questions answered. Chronic and current use of high-risk medication (Opioids). The patient was counseled about risk of opioid use, psychological risk associated with opioids and was orally counseled to not overuse , divert or sell medications. Pt is to store medication in a safe location. The patient is counseled against driving while using narcotic medicatio ns and also not to use alcohol or any illicit recreational drugs. Patient verbalized understanding that the lack of compliance will result in failure to renew narcotic prescription(s) as well as possible discharge from the clinic Diagnoses, prognosis and treatment options including but not limited to physical therapy, surgical interventions, interventional therapies and medication management including narcotics and adjuvant medication were discussed. All patient questions answered MAPS reviewed and it was appropriate. Prescription refill for Lidoderm patches #30 w 1 RF. Use, side effects, adverse reactions and safe storage discussed. Pt acknowledged understanding. I have spent less than 30 minutes on patient care today. Dr Damon was available by phone for the evaluation of this patient. The time was used to review the medical records including relevant urine studies and Prescription history (MAPs), review of the available imaging, evaluation and examination of the patient, coordination of care with the medical staff and if applicable referring physicians, as well as creation of the medical record PQRS Narrative: Smoking Status Never smoker Hx Alcohol Use (MH) No Home Medications: Ambulatory Orders ALPRAZolam [Xanax] 0.25 mg PO TID PRN 10/23/13 Albuterol Inhaler(Dose Unknown) 2 puff INHALATION DIRECTED PRN 10/23/13 Aspirin 81 mg PO DAILY 10/23/13 Cetirizine HCl 10 mg PO DAILY 10/23/13 Meclizine [Antivert] 25 mg PO TID PRN 10/23/13 Metoprolol Tartrate [Lopressor] 50 mg PO BID 10/23/13 Multivitamins, Thera [Multivitamin] 1 tab PO DAILY 10/23/13 Pravastatin Sodium [Pravachol] 80 mg PO HS 10/23/13 metFORMIN HCL [Glucophage] 1,000 mg PO BID 10/23/13 Cyclobenzaprine [Flexeril] 5 mg PO HS 02/01/22 Fluticasone Propion/Salmeterol [Fluticasone-Salmeterol 232-14] 1 dose INHALATION BID 06/20/22 HYDROcodone/APAP 5-325MG [[place] 5-325] 1 tab PO Q4HR PRN 3 Days #18 tab 01/22/23 sitaGLIPtin [Januvia] 100 mg PO DAILY 02/12/23 Lidocaine 5% Patch [Lidoderm 5% Patch] 1 each TP Q24H 30 Days #30 patch 03/19/23 Controlled Substance Measures - Controlled Substance Measures Is patient prescribed a controlled substance at discharge?: No
== END ==
LOC: PNWHC3 12:53
PROVIDERS: ATTEND Specialist
DX: M46.1 Sacroiliitis, not elsewhere classified (principal); M51.36 Other intervertebral disc degeneration, lumbar region; M47.816 Spondylosis without myelopathy or radiculopathy, lumbar region; G89.29 Other chronic pain; Z79.891 Long term (current) use of opiate analgesic; Z79.82 Long term (current) use of aspirin; Z88.1 Allergy status to other antibiotic agents; Z88.8 Allergy status to other drugs, medicaments and biological substances; Z91.013 Allergy to seafood
CPT/HCPCS: 99211

== ENCOUNTER → 2023-03-19 | Outpatient (CLI) | payer MEDICARE ==
--- NOTE | 2023-03-19 14:39 | XR ---
EXAMINATION TYPE: XR Hip Complete LT DATE OF EXAM: 03/19/2023 2:30 PM CLINICAL INDICATION:Female, 72 years old with history of M25.559; [facility] COMPARISON: None. TECHNIQUE: XR Hip Complete LT; hip was examined in the frontal and lateral projections and a AP pelvi s. FINDINGS: No evidence for acute process, joint dislocation or significant soft tissue swelling. Degen eration changes of the left acetabulum with osteophyte formation and joint space narrowing. IMPRESSION: 1. No acute process. 2. Moderate left hip osteoporosis.
== END | disposition home or self-care (01) ==
LOC: RADXRMAIN 14:14
PROVIDERS: ATTEND Physician Assistant Medical
DX: M81.0 Age-related osteoporosis without current pathological fracture (principal); M25.552 Pain in left hip
CPT/HCPCS: 73502

== ENCOUNTER → 2023-04-24 | Outpatient (CLI) | payer MEDICARE | END | disposition home or self-care (01) | LOC: RADMRIMAIN 18:43 | PROVIDERS: ATTEND Specialist | DX: Z53.9 Procedure and treatment not carried out, unspecified reason (principal) ==

== ENCOUNTER → 2023-09-06 | Outpatient (CLI) | payer MEDICARE ==
[2023-09-06 14:21] VITALS: BP 145/80; PULSE 64; RESP 16; TEMP 97.3
--- NOTE | 2023-09-06 15:13 | P.PAINPG ---
PQRS Measure Charge Sheet Comment: A 73 yr old female with a history of severe and chronic LBP secondary to L Hip DJD, lumbar DDD and spondylosis with facet arthropathy without myelopathy, BL Sacroiliitis presents today for evaluation. Pain level is provoked at 9 /10 in intensity, constant, predominantly axial, localized in the lower lumbar spine without shooting pain. Pain is provoked w sitting and standing from a supine position. Pain is alleviated with injections, PT w massage x 2 mo in Nov 2021, PT x 10 wks (hips) which ended in 2021, physician guided exercises (hips) every morning since Summer 2021, medications, topical, home stretching regimen, repositioning and rest. Interventional pain procedures completed include BL SI injection x2 Patient is currently on [place], Flexeril, Tyl, Lidoderm Patient denies any side effects of the medication(s), denies excessive drowsiness or sleepiness, denies suicidal ideation and reports that the current pain medication is helping to control the pain and improve activities of daily living. Patient denies any motor or sensory deficits. Patient denies any fever or night sweats, denies any change in the bowel movements or urination. Physical Examination: -Constitutional: Cooperative. Not in acute distress . - Neurologic: Cranial nerve II to XII intact. No focal neurological defi cits. - Psychatric: Alert & oriented x 3. Matching mood & appropriate affect. Judgment and insight intact. - Musculoskeletal: Cervical spine: Muscle bulk/ tone/ strength in the bilateral upper extremities normal Vertebral body tenderness to palpation over Spurling test positive Distraction test positive Facet loading test positive TTP Thoracic spine Muscle bulk / tone/ strength in the bilateral paraspinal muscles normal Vertebral body tender to palpation over Facet loading test positive TTP Lumbar spine: Motor bulk/ tone/ strength lower extremities , thigh and legs : 5/5 Deep tendon reflexes : Normal Knee Jerk. Normal Ankle Jerk . Vertebral body tenderness to palpation over Lumbar Facet Loading Test positive Straight Leg Raise: positive at 30 degrees right side/ left side Gaenslen's Test positive Sacral spine : Severe tenderness over the Sacroiliac joint: right side / left side Range of motion: Flexion of the lumbar spine <60 degrees Range of motion: Extension of the lumbar spine <20 degrees Gaenslen's Test positive right side / left side Staci test: positive right side / left side Thigh Thrust Test positive right side / left side Sacral Thrust Test positive right side / left side Imaging: X-ray of the L hip from 03/19/2023 reviewed MRI non contrast of the lumbar spine from 12/25/21 reviewed Assessment and plan: Chronic LBP secondary to lumbar DDD, spondylosis with facet arthropathy without myelopathy, BL Sacroiliitis Recommendation of BL SI injection #2. May need a series of injections for optimal pain relief. Risks, benefits of procedure discussed and pt verbalized understanding. Protocol for discontinuation/ continuation of medications gerardo procedure discussed. All questions answered. Chronic and current use of high-risk medication (Opioids). The patient was counseled about risk of opioid use, psychological risk associated with opioids and was orally counseled to not overuse , divert or sell medications. Pt is to store medication in a safe location. The patient is counseled against driving while using narcotic medications and also not to use alcohol or any illicit recreational drugs. Patient verbalized understanding that the lack of compliance will result in failure to renew narcotic prescription(s) as well as possible discharge from the clinic Diagnoses, prognosis and treatment options including but not limited to physical therapy, surgical interventions, interventional therapies and medication management including narcotics and adjuvant medication were discussed. All patient questions answered MAPS reviewed and it was appropriate. I have spent less than 30 minutes on patient care today. Dr Damon was available by phone for the evaluation of this patient. The time was used to review the medical records including relevant urine studies and Prescription history (MAPs), review of the available imaging, evaluation and examination of the patient, coordination of care with the medical staff and if applicable referring physicians, as well as creation of the medical record PQRS Narrative: Smoking Status Never smoker Hx Alcohol Use (MH) No Home Medications: Ambulatory Orders ALPRAZolam [Xanax] 0.25 mg PO TID PRN 10/23/13 Albuterol Inhaler(Dose Unknown) 2 puff INHALATION DIRECTED PRN 10/23/13 Aspirin 81 mg PO DAILY 10/23/13 Cetirizine HCl 10 mg PO DAILY 10/23/13 Meclizine [Antivert] 25 mg PO TID PRN 10/23/13 Metoprolol Tartrate [Lopressor] 50 mg PO BID 10/23/13 Multivitamins, Thera [Multivitamin] 1 tab PO DAILY 10/23/13 Pravastatin Sodium [Pravachol] 80 mg PO HS 10/23/13 metFORMIN HCL [Glucophage] 1,000 mg PO BID 10/23/13 Cyclobenzaprine [Flexeril] 5 mg PO HS 02/01/22 Fluticasone Propion/Salmeterol [Fluticasone-Salmeterol 232-14] 1 dose INHALATION BID 06/20/22 HYDROcodone/APAP 5-325MG [[place] 5-325] 1 tab PO Q4HR PRN 3 Days #18 tab 01/22/23 sitaGLIPtin [Januvia] 100 mg PO DAILY 02/12/23 Lidocaine 5% Patch [Lidoderm 5% Patch] 1 each TP Q24H 30 Days #30 patch 03/19/23 diazePAM [Valium] 5 mg PO DAILY PRN 1 Days #2 tab 09/06/23 Controlled Substance Measures - Controlled Substance Measures Is patient prescribed a controlled substance at discharge?: Yes When asked, does pt state using other controlled substances?: No If prescribed controlled substance>3 days was MAPS reviewed?: Prescribed <3 Days
== END ==
LOC: PNWHC3 09:50
PROVIDERS: ATTEND Specialist
DX: M51.16 Intervertebral disc disorders with radiculopathy, lumbar region (principal); M47.26 Other spondylosis with radiculopathy, lumbar region; G89.29 Other chronic pain; M46.1 Sacroiliitis, not elsewhere classified; Z79.891 Long term (current) use of opiate analgesic; Z88.1 Allergy status to other antibiotic agents; Z91.013 Allergy to seafood
CPT/HCPCS: 99211

== ENCOUNTER 2024-03-04 09:31 | Day surgery (SDC) | payer MEDICARE ==
[2024-02-04 08:44] VITALS: BMI 40.3
[2024-03-04] MEDS ORDERED: LACTATED RINGERS 1,000 ML IV SCH (09:48)
[2024-03-04 10:02] VITALS: RESP 16; TEMP 97
[2024-03-04 10:06] LABS: Glucose,Whole Blood 177 mg/dL (70-110)
[2024-03-04] MEDS ORDERED: IOPAMIDOL M200 10 ML VIAL ONE (10:53)
[2024-03-04] MEDS ORDERED: methylPREDNISolone ACETATE 40 MG/ML 1 ML VIAL ONE (10:53)
[2024-03-04] MEDS ORDERED: ROPIVACAINE 5MG/ML 20ML VIAL ONE (10:53)
--- NOTE | 2024-03-04 11:04 | P.PCN ---
Date of Procedure: 03/04/24 Procedure(s) Performed: Procedure= bilateral sacroiliac joints steroid injection under fluoroscopy guidance (fluoroscopy image stored on file in the radiology Department ) Preoperative diagnosis= 1-sacroiliitis 2-lumbar degenerative disc disease 3- lumbar facet arthropathy Postoperative diagnosis=Same as preop Diagnosis . Complication = none Condition= stable Anesthesia= local anesthesia with ropivacaine 0.5% 4 ml only Indication for the procedure= patient complaining of low back pain , examination was positive for severe tenderness over the sacroiliac joints bilaterally and patient diagnosed with sacroiliitis, for this reason he/ she was good candidate for sacroiliac joint steroid injection. Description of the procedure= procedure risk and benefits discussed with the patient, including but not limited, risk of infection and bleeding, and ALLERGIC reaction to the medication and not complete pain relief and patient agreed with the preceding patient taken to the operating room, placed in prone position or standard monitors applied to the patient then after induction of anesthesia back prepped with chlorhexidine 3 times , Then under strict sterile technique, first I did the right sacroiliac joint the which was identified under fluoroscopy guidance been local infiltration of the s kin and subcu interstitial with lidocaine 1% then 22-gauge 5 inches long Quincke Needle advanced slowly under fluoroscopy and placed in the right sacroiliac joint needle placement confirmed with AP and oblique and lateral view, then after that Isovue 200 one mL injected which confirmed the correct needle placement with the appropriate arthrogram of the sacroiliac joint, and after appropriate needle placement confirmed and after negative aspiration, or heme , then Ropivacaine 0.5% 2 mL, and 20 mg of Depo-Medrol mixed together and injected in the right sacroiliac joint after negative aspiration patient tolerated the procedure well without any complication. Then the left sacroiliac joint steroid injection done under strict sterile technique local infiltration of the skin and subcu interstitial at the location of the left sacroiliac joint then a 22-gauge 5 inches long Quincke Needle advanced slowly under fluoroscopy time placed in the left sacroiliac joint, needle placement confirmed with AP and oblique and lateral view then after appropriate needle placement confirmed, with the AP and oblique and lateral then after negative aspiration Isovue 200 1 mL injected showed arthropathy of the left sacroiliac joint, and after negative aspiration 0.5% Ropivacaine 2 mL and 20 mg of Depo-Medrol injected in the left sacroiliac joint after negative aspiration patient tolerated the procedure well that any complications and she will follow up in clinic 3 weeks
--- NOTE | 2024-03-04 11:31 | FL ---
EXAMINATION TYPE: FL guided pain mgmt statistic DATE OF EXAM: 03/04/2024 FLUOROSCOPY Fluoroscopy time of 26.2 seconds was used during bilateral SI joint injection. 4 image/s document/s the procedure. DAP [id number] mGycm2. There is appropriate needle placement with a small amount of cont rast injection confirming intra-articular location of the needle tip. [facility], , 03/04/2024 11:29 AM
[2024-03-04 11:34] VITALS: BP 123/61; PULSE 65
== END 2024-03-04 11:44 | disposition home or self-care (01) ==
LOC: ORPAIN 09:31
PROVIDERS: ATTEND Specialist
DX: M46.1 Sacroiliitis, not elsewhere classified

== ENCOUNTER → 2024-03-24 | Outpatient (CLI) | payer MEDICARE ==
[2024-03-24 10:44] VITALS: BP 104/69; PULSE 70; RESP 16
--- NOTE | 2024-03-26 07:55 | P.PAINPG ---
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 Pt states she experienced 75% pain relief x 3 wks s/p procedure. Pain level is provoked at 8 /10 in intensity, intermittent, predominantly axial, localized in the lower lumbar spine without shooting pain. Pain is provoked w standing from a supine position. Pain is alleviated with injections, PT w massage x 2 mo in Nov 2021, PT x 10 wks (hips) which ended in 2021, physician guided exercises (hips) every morning since Summer 2021, medications, topical, home stretching regimen, repositioning and rest. Interventional pain procedures completed include BL SI injection x3 (Feb 2024) Patient is currently on [place], Flexeril, Tyl, Lidoderm Patient denies any side effects of the medication(s), denies excessive drowsiness or sleepiness, denies suicidal ideation and reports that the current pain medication is helping to control the pain and improve activities of daily living. Patient denies any motor or sensory deficits. Patient denies any fever or night sweats, denies any change in the bowel movements or urination. Physical Examination: -Constitutional: Cooperative. Not in acute distress . - Neurologic: Cranial nerve II to XII intact. No focal neurological deficits. - Psychatric: Alert & oriented x 3. Matching mood & appropriate affect. Judgment and insight intact. - Musculoskeletal: Cervical spine: Muscle bulk/ tone/ strength in the bilateral upper extremities normal Vertebral body tenderness to palpation over Spurling test positive Distraction test positive Facet loading test positive TTP Thoracic spine Muscle bulk / tone/ strength in the bilateral paraspinal muscles normal Vertebral body tender to palpation over Facet loading test positive TTP Lumbar spine: Motor bulk/ tone/ strength lower extremities , thigh and legs : 5/5 Deep tendon reflexes : Normal Knee Jerk. Normal Ankle Jerk . Vertebral body tenderness to palpation over Lumbar Facet Loading Test positive Straight Leg Raise: positive at 30 degrees right side/ left side Gaenslen's Test positive Sacral spine : Severe tenderness over the Sacroiliac joint: right side / left side Range of motion: Flexion of the lumbar spine <60 degrees Range of motion: Extension of the lumbar spine <20 degrees Gaenslen's Test positive right side / left side Staci test: positive right side / left side Thigh Thrust Test positive right side / left side Sacral Thrust Test positive right side / left side Imaging: X-ray of the L hip from 03/19/2023 reviewed MRI non contrast of the lumbar spine from 12/25/21 reviewed Assessment and plan: Chronic LBP secondary to radiculopathy, spondylosis with facet arthropathy without myelopathy, BL Sacroiliitis Recommendation of medication management. Lidoderm 5% #30 w 2 RF and [place] 7.5/325mg #18 NR. Use, side effects, adverse reactions, safe storage discussed. All questions answered. Chronic and current use of high-risk medication (Opioids). The patient was counseled about risk of opioid use, psychological risk associated with opioids and was orally counseled to not overuse , divert or sell medications. Pt is to store medication in a safe location. The patient is counseled against driving while using narcotic medications and also not to use alcohol or any illicit recreational drugs. Patient verbalized understanding that the lack of compliance will result in failure to renew narcotic prescription(s) as well as possible discharge from the clinic Diagnoses, prognosis and treatment options including but not limited to physical therapy, surgical interventions, interventional therapies and medication management including narcotics and adjuvant medication were discussed. All patient questions answered MAPS reviewed and it was appropriate. I have spent less than 30 minutes on patient care today. Dr Damon was available by phone for the evaluation of this patient. The time was used to review the medical records including relevant urine studies and Prescription history (MAPs), review of the available imaging, evaluation and examination of the patient, coordination of care with the medical staff and if applicable referring physicians, as well as creation of the medical record - Pain Location Sacrum Non-Pharmacological Interventions: Massage, Physical Therapy Pharmacological Interventions: Epidural, Scheduled Medication, Topical Medication PQRS Narrative: Smoking Status Never smoker Hx Alcohol Use (MH) No Home Medications: Ambulatory Orders Albuterol Inhaler [Ventolin Hfa Inhaler] 1 - 2 puff INHALATION Q6H PRN 10/23/13 Aspirin 81 mg PO HS 05/29/14 Cetirizine HCl 10 mg PO QAM 10/23/13 Meclizine [Antivert] 25 mg PO TID PRN 10/23/13 Metoprolol Tartrate [Lopressor] 50 mg PO BID 10/23/13 Multivitamins, Thera [Multivitamin] 1 tab PO DAILY 10/23/13 Pravastatin Sodium [Pravachol] 80 mg PO HS 10/23/13 metFORMIN HCL [Glucophage] 1,000 mg PO BID 10/23/13 Fluticasone Propion/Salmeterol [Fluticasone-Salmeterol 232-14] 1 dose INHALATION BID 06/20/22 sitaGLIPtin [Januvia] 100 mg PO QAM 02/12/23 diazePAM [Valium] 5 - 10 mg PO DAILY PRN 09/25/23 Magnesium 3 tab PO BID 11/07/23 Cranberry Fruit Extract [Cranberry] 500 mg PO DAILY 02/04/24 HYDROcodone/APAP 7.5-325MG [[place] 7.5-325] 1 tab PO Q4H PRN 3 Days #18 tab 03/24/24 Lidocaine 5% Patch [Lidoderm 5% Patch] 1 each TP Q24H 30 Days #30 patch 03/24/24 Controlled Substance Measures - Controlled Substance Measures Is patient prescribed a controlled substance at discharge?: Yes When asked, does pt state using other controlled substances?: No If prescribed controlled substance>3 days was MAPS reviewed?: Prescribed <3 Days
== END ==
LOC: PNWHC3 10:22
PROVIDERS: ATTEND Specialist
DX: M47.26 Other spondylosis with radiculopathy, lumbar region (principal); M46.1 Sacroiliitis, not elsewhere classified; Z88.1 Allergy status to other antibiotic agents; Z91.013 Allergy to seafood
CPT/HCPCS: 99211

== ENCOUNTER → 2024-09-03 | Outpatient (CLI) | payer MEDICARE ==
[2024-09-03 10:52] VITALS: BP 137/77; PULSE 78; RESP 16; TEMP 96.6
--- NOTE | 2024-09-03 15:08 | P.PAINPG ---
PQRS Measure Charge Sheet Comment: A 74 yr old female with a history of severe and chronic LBP secondary to L Hip DJD, radiculopathy, spondylosis with facet arthropathy without myelopathy, BL Sacroiliitis presents today for evaluation. Pain level is provoked at 7 /10 in intensity, intermittent, predominantly axial, localized in the lower lumbar spine without shooting pain. Pain is provoked w standing from a supine position. Pain is alleviated with injections, PT w massage x 2 mo in Nov 2021, PT x 10 wks (hips) which ended in 2021, physician guided exercises (hips) every morning since Summer 2021, medications, topical, home stretching regimen, use of a wheelchair for ambulatory assistance, repositioning and rest. Interventional pain procedures completed include BL SI injection x3 (03/20) Patient is currently on [place], Flexeril, Tyl, Lidoderm Patient denies any side effects of the medication(s), denies excessive drowsiness or sleepiness, denies suicidal ideation and reports that the current pain medication is helping to control the pain and improve activities of daily living. Patient denies any motor or sensory deficits. Patient denies any fever or night sweats, denies any change in the bowel movements or urination. Physical Examination: -Constitutional: Cooperative. Not in acute distress . - Neurologic: Cranial nerve II to XII intact. No focal neurological deficits. - Psychatric: Alert & oriented x 3. Matching mood & appropriate affect. Judgment and insight intact. - Musculoskeletal: Cervical spine: Muscle bulk/ tone/ strength in the bilateral upper extremities normal Vertebral body tenderness to palpation over Spurling test positive Distraction test positive Facet loading test positive TTP Thoracic spine Muscle bulk / tone/ strength in the bilateral paraspinal muscles normal Vertebral body tender to palpation over Facet loading test positive TTP Lumbar spine: Motor bulk/ tone/ strength lower extremities , thigh and legs : 5/5 Deep tendon reflexes : Normal Knee Jerk. Normal Ankle Jerk . Vertebral body tenderness to palpation over Lumbar Facet Loading Test positive Straight Leg Raise: positive at 30 degrees right side/ left side Gaenslen's Test positive Sacral spine : Severe tenderness over the Sacroiliac joint: right side / left side Range of motion: Flexion of the lumbar spine <60 degrees Range of motion: Extension of the lumbar spine <20 degrees Gaenslen's Test positive right side / left side Staci test: positive right side / left side Thigh Thrust Test positive right side / left side Sacral Thrust Test positive right side / left side Imaging: X-ray of the L hip from 03/19/2023 reviewed MRI non contrast of the lumbar spine from 12/25/21 reviewed Assessment and plan: Chronic LBP secondary to radiculopathy, spondylosis with facet arthropathy without myelopathy, BL Sacroiliitis Recommendation of BL SI injection #2 and medication management. Lidoderm 5% #30 w 2 RF. Use, side effects, adverse reactions, safe storage discussed. Risks, benefits of procedure discussed and pt verbalized understanding. All questions answered. Chronic and current use of high-risk medication (Opioids). The patient was counseled about risk of opioid use, psychological risk associated with opioids and was orally counseled to not overuse , divert or sell medications. Pt is to store medication in a safe location. The patient is counseled against driving while using narcotic medications and also not to use alcohol or any illicit recreational drugs. Patient verbalized understanding that the lack of compliance will result in failure to renew narcotic prescription(s) as well as possible discharge from the clinic Diagnoses, prognosis and treatment options including but not limited to physical therapy, surgical interventions, interventional therapies and medication management including narcotics and adjuvant medication were discussed. All patient questions answered . MAPS reviewed and it was appropriate. I have spent less than 30 minutes on patient care today. Dr Damon was available by phone for the evaluation of this patient. The time was used to review the medical records including relevant urine studies and Prescription history (MAPs), review of the available imaging, evaluation and examination of the patient, coordination of care with the medical staff and if applicable referring physicians, as well as creation of the medical record PQRS Narrative: Smoking Status Never smoker Hx Alcohol Use (MH) No Home Medications: Ambulatory Orders Albuterol Inhaler [Ventolin Hfa Inhaler] 1 - 2 puff INHALATION Q6H PRN 10/23/13 Aspirin 81 mg PO HS 10/23/13 Cetirizine HCl 10 mg PO QAM 10/23/13 Meclizine [Antivert] 25 mg PO TID PRN 10/23/13 Metoprolol Tartrate [Lopressor] 50 mg PO BID 10/23/13 Multivitamins, Thera [Multivitamin] 1 tab PO DAILY 10/23/13 Pravastatin Sodium [Pravachol] 80 mg PO HS 10/23/13 metFORMIN HCL [Glucophage] 1,000 mg PO BID 10/23/13 Fluticasone Propion/Salmeterol [Fluticasone-Salmeterol 232-14] 1 dose INHALATION BID 06/20/22 sitaGLIPtin [Januvia] 100 mg PO QAM 02/12/23 diazePAM [Valium] 5 - 10 mg PO DAILY PRN 09/25/23 Magnesium 3 tab PO BID 11/07/23 Cranberry Fruit Extract [Cranberry] 500 mg PO DAILY 02/04/24 HYDROcodone/APAP 7.5-325MG [[place] 7.5-325] 1 tab PO Q4H PRN 3 Days #18 tab 03/24/24 Lidocaine 5% Patch [Lidoderm 5% Patch] 1 each TP Q24H 30 Days #30 patch 03/24/24 Lidocaine 5% Patch [Lidoderm] 1 each TP DAILY 30 Days #30 patch 03/26/24 Controlled Substance Measures - Controlled Substance Measures Is patient prescribed a controlled substance at discharge?: Yes When asked, does pt state using other controlled substances?: No If prescribed controlled substance>3 days was MAPS reviewed?: Prescribed <3 Days
== END ==
LOC: PNWHC3 10:29
PROVIDERS: ATTEND Specialist
DX: M47.26 Other spondylosis with radiculopathy, lumbar region (principal); G89.29 Other chronic pain; Z91.013 Allergy to seafood; Z88.1 Allergy status to other antibiotic agents
CPT/HCPCS: 99211

== ENCOUNTER 2024-10-10 11:24 | Day surgery (SDC) | payer MEDICARE ==
[2024-10-10 11:57] LABS: Glucose,Whole Blood 195 mg/dL (70-110)
[2024-10-10 11:58] VITALS: RESP 16; TEMP 97.6
[2024-10-10] MEDS ORDERED: IOPAMIDOL M200 10 ML VIAL ONE (12:43)
[2024-10-10] MEDS ORDERED: TRIAMCINOLONE ACETONIDE 40 MG/ML 1 ML VIAL ONE (12:43)
--- NOTE | 2024-10-10 12:52 | P.PCN ---
Date of Procedure: 10/10/24 Description of Procedure: Pre- and Post-operative Diagnosis: Sacroilitis and Lumbar Spondylosis Procedure: Bilateral Sacroiliac Joint injection under biplanar fluoroscopy Bilateral Sacroiliac joint arthrogram Surgeon: Clarence Mckeon Anesthesia: Local: 1% Lidocaine, IV sedation: None. Complications: none EBL : None Specimen removed: None Fluoroscopic image: Saved to patient electronic medical records. Indications for Procedure: The patient is well known to our pain clinic. Failed with the conservative pain management therapy. So scheduled for bilateral sacroiliac joint injection with fluoroscopic guidance. Procedure and Findings: The patient was seen and examined in the holding area. The written informed consent was obtained after explaining the risks, benefits and alternatives of the procedure to the patient. The patient was brought to the procedure room and was placed in the prone position on the operating room table. A pillow was placed under the lower abdomen. The anesthesia was started as mentioned above and monitoring was done with noninvasive blood pressure cuff, EKG and pulse oximetry. The skin preparation was done with ChloraPrep x 2, and draping was done in usual sterile fashion. Sterile technique was observed throughout the procedure. AP and little oblique fluoroscopic views of the sacral spine and pelvis were obtained to identify the right sacroiliac joint. About one cm above the inferior margin of the right sacroiliac joint was marked for needle entry. 2 mL ml of 1% Lidocaine was injected with a 25 gauge needle to achieve adequate local anesthesia of the skin and subcutaneous tissue. A 22 gauge 3.5 inch spinal nee dle was introduced and advanced into the target area under direct fluoroscopic guidance. A contact was felt and the needle was advanced little further. No parathesia was noted. A negative aspiration was confirmed and then 0.5 ml Isovue was injected. A good dye spread was seen along the joint space. A total of 3 mL ml solution containing Kenalog 20 mg and 2.5 ml of 1% preservative-free lidocaine. was injected slowly. The needles were removed intact. Entire procedure repeated on the left side. Area was cleaned and bandages were applied. Disposition : The patient tolerated the procedure very well. The patient was transferred to the recovery room and remained stable until discharged home. The patient was given detailed discharge instructions for infection, bleeding, and increased pain at the injection site, and was advised to seek immediate medical attention should significant side effects develop. The patient will be followed up with our Pain Clinic within 2 weeks for a repeat procedure if the procedure helpful.
[2024-10-10] MEDS ORDERED: LACTATED RINGERS 1,000 ML IV SCH (13:00)
[2024-10-10 13:11] VITALS: BP 121/81; PULSE 66
--- NOTE | 2024-10-10 13:15 | FL ---
EXAMINATION TYPE: FL guided pain mgmt statistic DATE OF EXAM: 10/10/2024 12:54 PM COMPARISON: Pre Operative Images if available both CT/MRI or plain film CLINICAL INDICATION: Female, 74 years old with history of Marvin SI Inj; TECHNIQUE: FL guided pain mgmt statistic, multiple fluoroscopic images provided for procedure. DAP: 0.12889 mGym2 Gycm2 uGym2 cGycm2 or equivalent. FINDINGS: Fluoroscopic images during injection for pain management demonstrate multilevel degeneration changes throughout the spine. No evidence for fracture. No acute process identified. IMPRESSION: 1. No evidence for intraoperative complication. 2. Please see the operative/procedural note for further details. [facility], , 10/10/2024 1:13 PM
== END 2024-10-10 13:10 | disposition home or self-care (01) ==
LOC: ORPAIN 11:24
DX: M46.1 Sacroiliitis, not elsewhere classified (principal); M47.816 Spondylosis without myelopathy or radiculopathy, lumbar region
CPT/HCPCS: J3301; Q9966; G0260

== ENCOUNTER → 2024-11-12 | Outpatient (CLI) | payer MEDICARE ==
[2024-11-12 13:08] VITALS: BP 127/67; PULSE 64; RESP 16
--- NOTE | 2024-11-12 15:39 | P.PN ---
Progress Note - Text Progress Note Date: 11/12/24 Paper charting. Internet and [employer] down
== END ==
LOC: PNWHC3 11:56
PROVIDERS: ATTEND Specialist
DX: M47.816 Spondylosis without myelopathy or radiculopathy, lumbar region (principal); M46.1 Sacroiliitis, not elsewhere classified; Z91.013 Allergy to seafood; Z88.1 Allergy status to other antibiotic agents
CPT/HCPCS: 99212